=== PATIENT | male | born 1980 | race Caucasian/White ===

== ENCOUNTER 2019-09-24 13:13 | Outpatient (CLI) | payer BC, SELFPAY ==
--- NOTE | 2019-09-24 13:45 | MR_ITS ---
WS: [id number] MRI RIGHT SHOULDER HISTORY: shoulder pain COMPARISON: None available. TECHNIQUE: Multiplanar sequences of the shoulder joint are submitted. Mild hypertrophy of the AC joint. There is a small amount of marrow edema in the distal clavicle and the adjacent acromion. Very small amount of fluid in the subacromial bursa. There is a very slight i ncreased signal in the distal supraspinatus tendon at the insertion site. Mild thickening thickening of the tendon. Very small insertion site tear is suspected with intrasubstance extension. Mild increa sed signal in the distal subscapularis tendon. There is no retraction of the tendon or muscle atrophy or edema. Biceps tendon is normally positioned. There is some increased signal within the biceps ten don suggesting a split tear. Adjacent to the biceps tendon are two hypointense nodules with the large st measuring 12 mm. Could be related to calcific tendinitis. These are adjacent to the distal subscap ularis tendon. No donor site is evident. MR/MR shoulder RT wo con* [id number] IMPRESSION: 1. Minimal insertion site tear supraspinatus tendon with intrasubstance extens ion. 2. Mild AC joint arthritis. 3. Calcific tendinitis adjacent to the distal subscapularis tendon. Mild tendi nitis subscapularis tendon suspected. Largest calcific deposit is 12 mm. 4. Suspect split tear biceps tendon.
== END 2019-09-24 13:14 | disposition home or self-care (01) ==
LOC: RADSHAW 13:16
PROVIDERS: PCP Nurse Practitioner Family; Visit Provider Nurse Practitioner Family
DX: S46.011A Strain of muscle(s) and tendon(s) of the rotator cuff of right shoulder, initial encounter (principal); M75.31 Calcific tendinitis of right shoulder; M25.511 Pain in right shoulder; X58.XXXA Exposure to other specified factors, initial encounter
CPT/HCPCS: 73221

== ENCOUNTER 2019-10-07 08:36 | Outpatient (CLI) | payer BC, SELFPAY | END 2019-10-07 08:37 | disposition home or self-care (01) | LOC: RADSHAW 10-08 09:41 | PROVIDERS: PCP Nurse Practitioner Family; Visit Provider Specialist | DX: M75.31 Calcific tendinitis of right shoulder (principal); M13.811 Other specified arthritis, right shoulder; M25.511 Pain in right shoulder; M47.892 Other spondylosis, cervical region; S49.90XA Unspecified injury of shoulder and upper arm, unspecified arm, initial encounter; M79.601 Pain in right arm; R29.90 Unspecified symptoms and signs involving the nervous system; M75.30 Calcific tendinitis of unspecified shoulder; S46.211A Strain of muscle, fascia and tendon of other parts of biceps, right arm, initial encounter; G62.9 Polyneuropathy, unspecified; X58.XXXA Exposure to other specified factors, initial encounter | CPT/HCPCS: 95885; 95909; 99204 ==

== ENCOUNTER 2019-10-13 16:39 | Outpatient (CLI) | payer BC, SELFPAY ==
--- NOTE | 2019-10-13 16:45 | MR_ITS ---
WS: [id number] MRI CERVICAL SPINE HISTORY: Shoulder Injury COMPARISON: None available. Normal cervical alignment with no compression fracture or significant disc space narrowing. Signal within the cervical cord is normal. Visualized posterior fossa is unremarkable. Craniocervical junction, C1 and C2 relationship, odontoid process and soft tissues are normal. C2-C3: Normal. C3-C4: Small LEFT foraminal osteophytes with only mild narrowing of the LEFT foramen. C4-C5: Shallow central disc protrusion and small foraminal osteophytes. Mild RIGHT foraminal narrowin g. C5-C6: Normal. C6-C7: Shallow central disc protrusion. No stenosis. C7-T1: Mild annular disc bulging with mild flattening of the ventral thecal sac but no stenosis. Paraspinal soft tissue are normal. MR/MR cervical spin wo con* [id number] IMPRESSION: 1. No significant central or foraminal stenosis. 2. Mild spondylosis as above. No significant encroachment upon the foramen or central cervical cord.
--- NOTE | 2019-10-13 17:30 | MR_ITS ---
WS: [id number] MRI BRACHIAL PLEXUS without CONTRAST. COMPARISON: None Multiplanar, multisequence imaging is performed without contrast. Study is limited by breathing motion artifact. Nerve roots through the fat of the upper thorax demons trate no change in signal or course. There is no fluid surrounding the nerve roots. There is a very t iny amount of fluid in the soft tissues over the RIGHT upper thorax of uncertain etiology. This is as ymmetric to the LEFT thorax. MR/MR brachialplexus wo con [id number] IMPRESSION: 1. No brachial plexus abnormality is identified on this examination. 2. Very small amount of fluid in the soft tissues over the RIGHT upper thorax of uncertain etiology. May indicate muscle injury. Fluid is not along the distr ibution of the nerve roots.
== END 2019-10-13 16:40 | disposition home or self-care (01) ==
LOC: RADSHAW 16:41
PROVIDERS: PCP Nurse Practitioner Family; Visit Provider Specialist
DX: S49.90XA Unspecified injury of shoulder and upper arm, unspecified arm, initial encounter (principal); X58.XXXA Exposure to other specified factors, initial encounter
CPT/HCPCS: 71550; 72141

== ENCOUNTER 2019-10-27 12:40 | Outpatient (RCR) | payer BC, SELFPAY | END 2019-10-30 23:59 | disposition home or self-care (01) | LOC: SPT 12:40 | PROVIDERS: PCP Nurse Practitioner Family; Referring Provider Specialist; Visit Provider Specialist | DX: S49.90XD Unspecified injury of shoulder and upper arm, unspecified arm, subsequent encounter (principal); X58.XXXD Exposure to other specified factors, subsequent encounter | CPT/HCPCS: 97161 ==

== ENCOUNTER 2019-10-31 06:00 | Outpatient (RCR) | payer BC, SELFPAY | END 2019-11-30 23:59 | disposition home or self-care (01) | LOC: SPT 06:00 | PROVIDERS: PCP Nurse Practitioner Family; Referring Provider Specialist; Visit Provider Specialist | DX: S49.90XD Unspecified injury of shoulder and upper arm, unspecified arm, subsequent encounter (principal); X58.XXXD Exposure to other specified factors, subsequent encounter | CPT/HCPCS: 97110; 97112; 97140; 97530 ==